=== PATIENT | male | born 1935 | race Caucasian/White ===

== ENCOUNTER 2023-02-02 11:32 | Emergency (ER) | payer MEDICARE, SELFPAY ==
[2023-02-02 11:34] VITALS: BP 122/79; PULSE 84; RESP 16; TEMP 36.5; O2SAT 99; BMI 27.4
--- NOTE | 2023-02-02 11:37 | ECG_ITS ---
[facility] Test Date: 2023-02-02 Pat Name: ANGELA PORTER Department: Room: - Gender: Male Media Director: : 1935 Requested By: TJ OWENS Order Number: [id number] Reading MD: KIMBERLY MEAD Measurements Intervals [place] Rate: 76 P: 21 IA: 146 QRS: 14 QRSD: 128 T: 60 QT: 394 QTc: 424 Interpretive Statements 1100 Sinus rhythm 2320 Nonspecific intraventricular conduction delay Inferolateral ST depression, can't exclude myocardial ischemia 9130 borderline ECG No previous ECG available for comparison Electronically Signed On 02-04-2023 11:37:57 EDT by KIMBERLY MEAD
--- NOTE | 2023-02-02 11:37 | XR_ITS ---
The [address] [address] Patient Name: ANGELA PORTER MRN: [id number] date: 1935 Sex: M Assigned Patient Location: ER Current Patient Location: ED.MAIN Accession/Order Number: [id number] Exam Date: 02/02/2023 11:47 Report Date: 02/02/2023 12:14 At the request of: YUE SMITH Procedure: XR chest 1V EXAM: XR chest 1V at 1153 hours HISTORY: confusion/delusions COMPARISON: None. TECHNIQUE: AP upright portable chest x-ray FINDINGS: The heart is not enlarged and the vasculature is not distended. Multiple sternal wire sutures are present. No acute infiltrate, effusion or pneumothorax is identified. The osseous structures are grossly intact. IMPRESSION: No acute infiltrate or evidence of cardiac decompensation. Direct comparison with a previous study would be helpful in determining the chronicity of these findings. Electronically authenticated by: MERI JAVIER Date: 02/02/2023 12:14
--- NOTE | 2023-02-02 11:57 | CT_ITS ---
The [address] [address] Patient Name: ANGELA PORTER MRN: [id number] date: 1935 Sex: M Assigned Patient Location: ER Current Patient Location: ER Accession/Order Number: [id number] Exam Date: 02/02/2023 12:25 Report Date: 02/02/2023 12:52 At the request of: YUE SMITH Procedure: CT head/brain wo con CT head/brain wo con, 02/02/2023 12:25 PM EDT INDICATION: Delusions/confused COMPARISON: None. TECHNIQUE: Axial CT images of the brain from skull base to vertex, including portions of the face and sinuses, were obtained without contrast. Multiplanar reformatted images were generated and reviewed as needed. FINDINGS: No intracranial mass, hydrocephalus, midline shift or acute hemorrhage. No extra-axial collection. Periventricular and deep white matter microvascular ischemic change. Mcwilliams-white matter differentiation is preserved. The paranasal sinuses and mastoid air cells are clear. Orbits are within normal limits. No acute skull fracture. IMPRESSION: 1. No acute intracranial abnormality. 2. Periventricular and deep white matter gliosis. Electronically authenticated by: TEGAN THAKUR Date: 02/02/2023 12:52
[2023-02-02 12:08] LABS: Basophils Percent Auto 0.7 % (0.2-2.0); Eosinophils Absolute Auto 0.1 10^3/uL (0.0-0.7); Eosinophils Percent Auto 2.6 % (0.9-7.0); Hemoglobin 13.2 g/dL (14.0-18.0); Immature Granulocytes Abs Auto 0.01 10^3/uL (0.00-0.03); Immature Granulocytes Pct Auto 0.2 % (0.0-0.5); Lymphocytes Absolute Auto 1.2 10^3/uL (1.2-3.8); Lymphocytes Percent Auto 25.3 % (20.5-60.0); Mean Corpuscular HGB Conc 33.8 g/dL (29.9-35.2); Mean Corpuscular Hemoglobin 29.6 pg (25.9-34.0); Mean Corpuscular Volume 87.4 fL (80.0-94.0); Monocytes Absolute Auto 0.5 10^3/uL (0.3-0.8); Monocytes Percent Auto 10.2 % (1.7-12.0); Neutrophils Absolute Auto 2.8 10^3/uL (1.4-6.5); Platelet Count 157 10^3/uL (150-450); Red Blood Count 4.46 10^6/uL (4.70-6.10); Red Cell Distribution Width 13.9 % (11.0-15.0); White Blood Count 4.6 10^3/uL (4.0-11.0)
[2023-02-02 12:29] LABS: Alanine Aminotransferase 20 U/L (16-63); Albumin Globulin Ratio 0.8; Albumin Level 3.6 g/dL (3.4-5.0); Alkaline Phosphatase 151 U/L (46-116); Anion Gap 17.5; Aspartate Amino Transferase 19 U/L (15-37); BUN Creatinine Ratio 16.9; Bilirubin Total 0.7 mg/dL (0.2-1.0); Calcium 9.2 mg/dL (8.5-10.1); Carbon Dioxide 20.3 mmol/L (21.0-32.0); Chloride 105 mmol/L (98-107); Estimated GFR (African America >60 (>=60); Estimated GFR (Non-African Ame 55 (>=60); Globulin 4.3 g/dL; Glucose 138 mg/dL (74-106); Potassium 3.8 mmol/L (3.5-5.1); Sodium 139 mmol/L (136-145); Total Protein 7.9 g/dL (6.4-8.2)
[2023-02-02 12:37] LABS: Ethanol <3 mg/dL; Thyroid Stimulating Hormone 2.054 uIU/mL (0.358-3.740)
[2023-02-02 12:51] LABS: Bilirubin Urine NEGATIVE (NEGATIVE); Blood Urine NEGATIVE (NEGATIVE); Clarity Urine CLEAR (CLEAR); Color Urine YELLOW (YELLOW); Glucose Urine UA NEGATIVE (NEGATIVE); Ketones Urine TRACE mg/dL (NEGATIVE); Leukocyte Esterase Urine NEGATIVE (NEGATIVE); Nitrite Urine NEGATIVE (NEGATIVE); Protein Urine NEGATIVE (NEG/TRACE); pH Urine 5.5 (5.0-9.0)
[2023-02-02 13:01] LABS: Amphetamine Screen Urine NEGATIVE (NEGATIVE); Barbiturates Screen Urine NEGATIVE (NEGATIVE); Benzodiazepines Screen Urine NEGATIVE (NEGATIVE); Buprenorphine Screen Urine NEGATIVE (NEGATIVE); Cannabinoid Screen Urine NEGATIVE (NEGATIVE); Cocaine Screen Urine NEGATIVE (NEGATIVE); Methadone Screen Urine NEGATIVE (NEGATIVE); Methamphetamines Screen Urine NEGATIVE (NEGATIVE); Opiate Screen Urine NEGATIVE (NEGATIVE); Oxycodone Screen Urine NEGATIVE (NEGATIVE); Phencyclidine Screen Urine NEGATIVE (NEGATIVE); Tricyclic Antidepressant Urine NEGATIVE (NEGATIVE)
--- NOTE | 2023-02-02 13:50 | ED_ITS ---
HPI - Medical Clearance General Chief complaint: Medical Clearance Stated complaint: CONFUSION Time Seen by Provider: 02/02/23 11:34 Source: patient Mode of arrival: ambulance History of Present Illness HPI Narrative: 87-year-old male presents for medical evaluation. He was staying at one facility and is to be transferred to another for psychiatric care. He doesn't seem to have any physical complaints. He was apparently was arguing with some person who was not there. He apparently created is a disturbance at the facility. This appears to been increasing over the past few days. He doesn't complain of a headache and hasn't had a fever. Related Information Home Medications Medication Instructions Recorded Confirmed atorvastatin 40 mg tablet 40 mg PO QPM 02/02/23 02/02/23 bisacodyl 10 mg rectal suppository [address] DAILY PRN constipation 02/02/23 02/02/23 calcium polycarbophil 625 mg 1,250 mg PO BID 02/02/23 02/02/23 tablet (FiberCon) cetirizine 5 mg tablet (Allergy 5 mg PO DAILY 02/02/23 02/02/23 Relief (cetirizine)) glucagon 1 mg solution for 1 mg IM Q20M PRN hypoglycemia 02/02/23 02/02/23 injection insulin lispro 100 unit/mL 1 sliding scale dose subcut 02/02/23 02/02/23 subcutaneous solution USEASDIRECTD magnesium oxide 400 mg PO DAILY 02/02/23 02/02/23 metformin 1,000 mg tablet 1,000 mg PO BID 02/02/23 02/02/23 pantoprazole 40 mg tablet,delayed 40 mg PO DAILY 02/02/23 02/02/23 release tamsulosin 0.4 mg capsule (Flomax) 0.4 mg PO DAILY 02/02/23 02/02/23 Allergies Allergy/AdvReac Type Severity Reaction Status Date / Time No Known Drug Allergies Allergy Verified 02/02/23 11:38 Review of Systems ROS Narrative unobtainable, age PFSH [facility] Medical History (Updated 02/02/23 @ 14:53 by Bobo Parham MD) Exam Narrative Exam Narrative: Nurses note and vital signs reviewed and patient is not hypoxic. General: The patient appears well and in no apparent distress. Patient is resting comfortably on cart. Skin: Warm, dry, no pallor noted. There is no rash noted. Head: Normocephalic, atraumatic Eye: Normal conjunctiva, no drainage Ears, Nose, Mouth, and Throat: oral mucosa is moist. Nares patent. Cardiovascular: not tachycardic Respiratory: Patient is in no distress, no accessory muscle use, lungs are clear to auscultation, no wheezing, rales or rhonchi Back: non-tender GI: soft and nontender Musculoskeletal: The patient has no evidence of calf tenderness, no pitting edema, symmetrical pulses noted bilaterally Neurological: awake and alert. When asked the year he said 2031 but he knew it is January and the last day of January. He knows his name and where he is. Psychiatric: Cooperative Constitutional Vital Signs - 24 hr 02/02/23 11:34 02/02/23 11:53 Temperature 97.7 F Pulse Rate [Monitor] 84 Respiratory Rate 16 Blood Pressure [Left Arm] 122/79 H Pulse Oximetry 99 Oxygen Delivery Method Room Air Room Air Course Vital Signs Vital signs: Vital Signs Temperature 97.7 F 02/02/23 11:34 Pulse Rate 84 02/02/23 11:34 Respiratory Rate 16 02/02/23 11:34 Blood Pressure 122/79 H 02/02/23 11:34 Pulse Oximetry 99 02/02/23 11:34 Oxygen Delivery Method Room Air 02/02/23 11:34 Temperature 97.7 F 02/02/23 11:34 Pulse Rate 84 02/02/23 11:34 Respiratory Rate 16 02/02/23 11:34 Blood Pressure 122/79 H 02/02/23 11:34 Pulse Oximetry 99 02/02/23 11:34 Oxygen Delivery Method Room Air 02/02/23 11:53 MDM - Medical Clearance MDM Narrative Medical decision making narrative: his medical workup is negative here and he is cleared. We have spoken to [facility], the facility that he ultimately will be transferred to, and they agreed that the patient can go back to his current ECF. Differential Diagnosis Differential diagnosis: Likely other (urinary tract infection, pneumonia, stroke, dementia) Lab Data Attestation: I reviewed the patient's lab results. Labs: Lab Results 02/02/23 02/02/23 Range/Units 11:45 12:33 WBC 4.6 (4.0-11.0) 10^3/uL RBC 4.46 L (4.70-6.10) 10^6/uL Hgb 13.2 L (14.0-18.0) g/dL Hct 39.0 L (42.0-54.0) % MCV 87.4 (80.0-94.0) fL MCH 29.6 (25.9-34.0) pg MCHC 33.8 (29.9-35.2) g/dL RDW 13.9 (11.0-15.0) % Plt Count 157 (150-450) 10^3/uL MPV 12.0 (9.5-13.5) fL Neut % (Auto) 61.0 (43.0-75.0) % Lymph % (Auto) 25.3 (20.5-60.0) % [place] % (Auto) 10.2 (1.7-12.0) % Eos % (Auto) 2.6 (0.9-7.0) % Baso % (Auto) 0.7 (0.2-2.0) % Neut # (Auto) 2.8 (1.4-6.5) 10^3/uL Lymph # (Auto) 1.2 (1.2-3.8) 10^3/uL [place] # (Auto) 0.5 (0.3-0.8) 10^3/uL Eos # (Auto) 0.1 (0.0-0.7) 10^3/uL Baso # (Auto) 0.0 (0.0-0.1) 10^3/uL Abs Immat Gran (auto) 0.01 (0.00-0.03) 10^3/uL Imm/Tot Granulo (auto) 0.2 (0.0-0.5) % Sodium 139 (136-145) mmol/L Potassium 3.8 (3.5-5.1) mmol/L Chloride 105 (98-107) mmol/L Carbon Dioxide 20.3 L (21.0-32.0) mmol/L Anion Gap 17.5 BUN 21.0 H (7.0-18.0) mg/dL Creatinine 1.24 (0.70-1.30) mg/dL Est GFR ( Amer) >60 (>=60) Est GFR (Non-Af Amer) 55 L (>=60) BUN/Creatinine Ratio 16.9 Glucose 138 H (74-106) mg/dL Calcium 9.2 (8.5-10.1) mg/dL Total Bilirubin 0.7 (0.2-1.0) mg/dL AST 19 (15-37) U/L ALT 20 (16-63) U/L Alkaline Phosphatase 151 H (46-116) U/L Total Protein 7.9 (6.4-8.2) g/dL Albumin 3.6 (3.4-5.0) g/dL Globulin 4.3 g/dL Albumin/Globulin Ratio 0.8 TSH 2.054 (0.358-3.740) uIU/mL Urine Color Yellow (YELLOW) Urine Clarity Clear (CLEAR) Urine pH 5.5 (5.0-9.0) Ur Specific [place] 1.020 (1.005-1.025) Urine Protein Negative (NEG/TRACE) mg/dL Urine Glucose (UA) Negative (NEGATIVE) mg/dL Urine Ketones Trace A (NEGATIVE) mg/dL Urine Occult Blood Negative (NEGATIVE) Urine Nitrite Negative (NEGATIVE) Urine Bilirubin Negative (NEGATIVE) Urine Urobilinogen 1.0 (0.2-1.0) EU/dL Ur Leukocyte Esterase Negative (NEGATIVE) Urine Opiates Screen Negative (NEGATIVE) Ur Buprenorphine Scrn Negative (NEGATIVE) Ur Oxycodone Screen Negative (NEGATIVE) Urine Methadone Screen Negative (NEGATIVE) Ur Propoxyphene Screen Negative (NEGATIVE) Ur Barbiturates Screen Negative (NEGATIVE) U Tricyclic Antidepress Negative (NEGATIVE) Ur Phencyclidine Scrn Negative (NEGATIVE) Ur Amphetamines Screen Negative (NEGATIVE) U Methamphetamines Scrn Negative (NEGATIVE) U Benzodiazepines Scrn Negative (NEGATIVE) Urine Cocaine Screen Negative (NEGATIVE) U Cannabinoids Screen Negative (NEGATIVE) Ethanol Quant <3 mg/dL Discharge Plan Discharge Chief Complaint: Medical Clearance Clinical Impression: Adult behavior problem Patient Disposition: Xfer SNF Time of Disposition Decision: 14:53 Mode of Transportation: EMS Instructions: Cognitive Behavioral Therapy (ED) Stand Alone Forms: Portal Instructions Referrals: TJ OWENS [Primary Care Provider] - 1 week
--- NOTE | 2023-02-02 14:40 | PC.NURSE ---
Called and spoke with nurse Perdomo at [facility] re: med clearance for psych eval and placement. Leanne request labs and EKG to be faxed to [facility] at which has been completed. Leanne also informs this nurse that as long as pt is not a threat to self or others then the pt can be sent back to the facility to wait for placement while [facility] is working on this placement. ER DR informed and pt will be sent back to facility for placement and pt is not a threat to self or others.
--- NOTE | 2023-02-02 15:13 | PC.NURSE ---
Nurse Sara called at [facility] to report that pt will be returning to facility while waiting placement. Sara verbalized understanding.
--- NOTE | 2023-02-02 15:24 | PC.NURSE ---
EMS here to transfer pt to Facility, pt did not show any aggressive behavior and no delusions while in ER, paper work sent with pt
== END 2023-02-02 15:26 | disposition home or self-care (01) ==
PROVIDERS: Emergency Provider Emergency Medicine; PCP Internal Medicine
DX: F91.9 Conduct disorder, unspecified (principal); Z79.899 Other long term (current) drug therapy; Z79.4 Long term (current) use of insulin; Z79.84 Long term (current) use of oral hypoglycemic drugs
CPT/HCPCS: 36415; 70450; 71045; 80053; 80307; 80320; 81003; 84443; 85025; 93005; 99285

== ENCOUNTER 2023-02-07 16:22 | Emergency (ER) | payer MEDICARE, SELFPAY ==
[2023-02-07 16:29] VITALS: BP 129/78; PULSE 78; RESP 18; TEMP 36.6; O2SAT 100; BMI 25.0
[2023-02-07 16:32] VITALS: BP 124/75; PULSE 70; PULSE 71; RESP 16; RESP 25; O2SAT 100; O2SAT 97
--- NOTE | 2023-02-07 16:33 | ED.GENADUL1 ---
HPI - General Adult General Chief complaint: Nausea/Vomiting/Diarrhea Stated complaint: NAUSEA/VOMITING Time Seen by Provider: 02/07/23 16:33 History of Present Illness HPI narrative: this patient brought to us by paramedics from a local residential. He was just here several days ago for similar problems. I will review those charts. Today the report was that he's had ongoing nausea vomiting and diarrhea. He does have some dementia and doesn't have a lot of insight into these problems but he does admit to being nauseated, however he feels better since the paramedics gave him medication. He does not have a headache. Does not have a stomachache at this time. We will review his old records but there is no history of falls, difficulty breathing or change in his cognition. Related Data Home Medications Medication Instructions Recorded Confirmed atorvastatin 40 mg tablet 40 mg PO QPM 02/02/23 02/02/23 bisacodyl 10 mg rectal suppository 10 mg MD DAILY PRN constipation 02/02/23 02/02/23 calcium polycarbophil 625 mg 1,250 mg PO BID 02/02/23 02/02/23 tablet (FiberCon) cetirizine 5 mg tablet (Allergy 5 mg PO DAILY 02/02/23 02/02/23 Relief (cetirizine)) glucagon 1 mg solution for 1 mg IM Q20M PRN hypoglycemia 02/02/23 02/02/23 injection insulin lispro 100 unit/mL 1 sliding scale dose subcut 02/02/23 02/02/23 subcutaneous solution USEASDIRECTD magnesium oxide 400 mg PO DAILY 02/02/23 02/02/23 metformin 1,000 mg tablet 1,000 mg PO BID 02/02/23 02/02/23 pantoprazole 40 mg tablet,delayed 40 mg PO DAILY 02/02/23 02/02/23 release tamsulosin 0.4 mg capsule (Flomax) 0.4 mg PO DAILY 02/02/23 02/02/23 Allergies Allergy/AdvReac Type Severity Reaction Status Date / Time No Known Drug Allergies Allergy Verified 02/02/23 11:38 [facility] Medical History (Updated 02/07/23 @ 18:21 by Kenji Cameron MD) Exam Narrative Exam Narrative: awake alert not somnolent or lethargic. Follows all simple and complex commands but clearly has some dementia. Garments are not soiled and he's not had any vomitus in route here but he does say he feels better after getting Zofran. I did review his last Emergency Room record and at that time the record and the nursing was here with him indicate that he did not have vomiting and diarrhea at that visit. Vital signs are normal as noted. I examination shows extraocular muscles be normal no pallor conjunctivitis or periorbital swelling. Neck examination is soft and supple he sits him up moves about comfortably. There is no nuchal rigidity or meningeal irritation History his lungs are clear pulse ox a hundred percent there is no respiratory distress. Cardio right rate and rhythm are normal with no S3-S4 or murmur. Abdomen is soft and supple he does not have any pain grimacing or discomfort to palpation. There is no loose stool in his undergarments at this time. Extremities show no pitting edema phlebitis swelling or evidence of injury. Constitutional Vital Signs - 24 hr 02/07/23 16:29 02/07/23 16:35 Temperature 97.9 F Pulse Rate [Monitor] 78 Respiratory Rate 18 Blood Pressure [Right Arm] 129/78 H Pulse Oximetry 100 Oxygen Delivery Method Room Air Room Air Course Vital Signs Vital signs: Vital Signs Temperature 97.9 F 02/07/23 16:29 Pulse Rate 78 02/07/23 16:29 Respiratory Rate 18 02/07/23 16:29 Blood Pressure 129/78 H 02/07/23 16:29 Pulse Oximetry 100 02/07/23 16:29 Oxygen Delivery Method Room Air 02/07/23 16:29 Temperature 97.9 F 02/07/23 16:29 Pulse Rate 78 02/07/23 16:29 Respiratory Rate 18 02/07/23 16:29 Blood Pressure 129/78 H 02/07/23 16:29 Pulse Oximetry 100 02/07/23 16:29 Oxygen Delivery Method Room Air 02/07/23 16:35 Medical Decision Making MDM Narrative Medical decision making narrative: patient had no vomiting or diarrhea while here. His chemistries were essentially unchanged from previous studies. His lactate is mildly elevated but there is no anion gap. His dementia is stable and unchanged from previous visit. We have ordered a stool PCR in lieu of his history but we see no objective evidence of ongoing fluid loss. His creatinine and B1 are stable. Lab Data Labs: Lab Results 02/07/23 Range/Units 16:45 WBC 4.0 (4.0-11.0) 10^3/uL RBC 4.05 L (4.70-6.10) 10^6/uL Hgb 11.9 L (14.0-18.0) g/dL Hct 34.3 L (42.0-54.0) % MCV 84.7 (80.0-94.0) fL MCH 29.4 (25.9-34.0) pg MCHC 34.7 (29.9-35.2) g/dL RDW 13.7 (11.0-15.0) % Plt Count 144 L (150-450) 10^3/uL MPV 12.4 (9.5-13.5) fL Neut % (Auto) 63.6 (43.0-75.0) % Lymph % (Auto) 23.5 (20.5-60.0) % [place] % (Auto) 9.2 (1.7-12.0) % Eos % (Auto) 2.7 (0.9-7.0) % Baso % (Auto) 0.5 (0.2-2.0) % Neut # (Auto) 2.6 (1.4-6.5) 10^3/uL Lymph # (Auto) 1.0 L (1.2-3.8) 10^3/uL [place] # (Auto) 0.4 (0.3-0.8) 10^3/uL Eos # (Auto) 0.1 (0.0-0.7) 10^3/uL Baso # (Auto) 0.0 (0.0-0.1) 10^3/uL Abs Immat Gran (auto) 0.02 (0.00-0.03) 10^3/uL Imm/Tot Granulo (auto) 0.5 (0.0-0.5) % Sodium 134 L (136-145) mmol/L Potassium 4.4 (3.5-5.1) mmol/L Chloride 105 (98-107) mmol/L Carbon Dioxide 22.9 (21.0-32.0) mmol/L Anion Gap 10.5 BUN 23.0 H (7.0-18.0) mg/dL Creatinine 1.04 (0.70-1.30) mg/dL Est GFR ( Amer) >60 (>=60) Est GFR (Non-Af Amer) >60 (>=60) BUN/Creatinine Ratio 22.1 Glucose 130 H (74-106) mg/dL Lactate 2.8 H* (0.4-2.0) mmol/L Calcium 8.9 (8.5-10.1) mg/dL Total Bilirubin 0.6 (0.2-1.0) mg/dL AST 20 (15-37) U/L ALT 24 (16-63) U/L Alkaline Phosphatase 174 H (46-116) U/L Total Protein 7.1 (6.4-8.2) g/dL Albumin 3.6 (3.4-5.0) g/dL Globulin 3.5 g/dL Albumin/Globulin Ratio 1.0 Lipase 35.0 L (73.0-393.0) U/L Discharge Plan Discharge Chief Complaint: Nausea/Vomiting/Diarrhea Clinical Impression: Dehydration Patient Disposition: Home, Self-Care Time of Disposition Decision: 18:20 Prescriptions / Home Meds: No Action atorvastatin 40 mg tablet 40 mg PO QPM cetirizine [Allergy Relief (cetirizine)] 5 mg tablet 5 mg PO DAILY bisacodyl 10 mg suppository 10 mg MD DAILY PRN (Reason: constipation) calcium polycarbophil [FiberCon] 625 mg tablet 1,250 mg PO BID tamsulosin [Flomax] 0.4 mg capsule 0.4 mg PO DAILY glucagon 1 mg recon soln 1 mg IM Q20M PRN (Reason: hypoglycemia) Rx Instructions: until target blood sugar attained insulin lispro 100 unit/mL solution 1 sliding scale dose subcut USEASDIRECTD magnesium oxide 400 mg magnesium capsule 400 mg PO DAILY metformin 1,000 mg tablet 1,000 mg PO BID pantoprazole 40 mg tablet,delayed release (DR/EC) 40 mg PO DAILY Instructions: Dehydration (ED) Additional Instructions: may use Zofran as needed for nausea. Patient has not had any diarrhea if he does it should be tested for PCR analysis. Stand Alone Forms: Portal Instructions Referrals: TJ OWENS [Primary Care Provider] - 1 week
[2023-02-07 16:56] LABS: Basophils Percent Auto 0.5 % (0.2-2.0); Eosinophils Absolute Auto 0.1 10^3/uL (0.0-0.7); Eosinophils Percent Auto 2.7 % (0.9-7.0); Hematocrit 34.3 % (42.0-54.0); Hemoglobin 11.9 g/dL (14.0-18.0); Immature Granulocytes Abs Auto 0.02 10^3/uL (0.00-0.03); Immature Granulocytes Pct Auto 0.5 % (0.0-0.5); Lymphocytes Percent Auto 23.5 % (20.5-60.0); Mean Corpuscular HGB Conc 34.7 g/dL (29.9-35.2); Mean Corpuscular Hemoglobin 29.4 pg (25.9-34.0); Mean Corpuscular Volume 84.7 fL (80.0-94.0); Mean Platelet Volume 12.4 fL (9.5-13.5); Monocytes Absolute Auto 0.4 10^3/uL (0.3-0.8); Monocytes Percent Auto 9.2 % (1.7-12.0); Neutrophils Absolute Auto 2.6 10^3/uL (1.4-6.5); Neutrophils Percent Auto 63.6 % (43.0-75.0); Platelet Count 144 10^3/uL (150-450); Red Blood Count 4.05 10^6/uL (4.70-6.10); Red Cell Distribution Width 13.7 % (11.0-15.0)
[2023-02-07 17:00] VITALS: BP 126/69; PULSE 73; RESP 13; O2SAT 98
[2023-02-07] MEDS: ONDANSETRON PF 4 MG/2 ML VIAL IV (17:20)
[2023-02-07] MEDS: 0.9 % SODIUM CHLORIDE 1,000 ML 999 ML IV (17:20)
[2023-02-07 17:30] VITALS: BP 124/69; PULSE 76; RESP 11; O2SAT 97
[2023-02-07 18:00] VITALS: BP 121/68; PULSE 76; RESP 16; O2SAT 99
[2023-02-07 18:10] LABS: Alanine Aminotransferase 24 U/L (16-63); Albumin Level 3.6 g/dL (3.4-5.0); Alkaline Phosphatase 174 U/L (46-116); Anion Gap 10.5; Aspartate Amino Transferase 20 U/L (15-37); BUN Creatinine Ratio 22.1; Bilirubin Total 0.6 mg/dL (0.2-1.0); Calcium 8.9 mg/dL (8.5-10.1); Carbon Dioxide 22.9 mmol/L (21.0-32.0); Chloride 105 mmol/L (98-107); Estimated GFR (African America >60 (>=60); Estimated GFR (Non-African Ame >60 (>=60); Globulin 3.5 g/dL; Glucose 130 mg/dL (74-106); Potassium 4.4 mmol/L (3.5-5.1); Sodium 134 mmol/L (136-145); Total Protein 7.1 g/dL (6.4-8.2)
[2023-02-07 18:13] LABS: Lactate/Lactic Acid 2.8 mmol/L (0.4-2.0)
[2023-02-07 18:30] VITALS: BP 126/69; PULSE 76; RESP 16; O2SAT 100
[2023-02-07 19:14] LABS: Bilirubin Urine NEGATIVE (NEGATIVE); Blood Urine NEGATIVE (NEGATIVE); Clarity Urine CLEAR (CLEAR); Color Urine YELLOW (YELLOW); Glucose Urine UA NEGATIVE (NEGATIVE); Ketones Urine NEGATIVE (NEGATIVE); Leukocyte Esterase Urine NEGATIVE (NEGATIVE); Nitrite Urine NEGATIVE (NEGATIVE); Protein Urine NEGATIVE (NEG/TRACE); pH Urine 5.5 (5.0-9.0)
--- NOTE | 2023-02-07 19:20 | PC.NURSE ---
Report received from Meg MORALES Pt repositioned in bed, aware of plan to return to retirement Pt denies further needs at this time Pt currently on monitor with fluids running
[2023-02-07 19:25] LABS: Urine Microscopic Indicated NO
== END 2023-02-07 20:25 | disposition home or self-care (01) ==
PROVIDERS: Emergency Provider Emergency Medicine Emergency Medical Services; PCP Internal Medicine
DX: E86.0 Dehydration (principal); F03.90 Unspecified dementia, unspecified severity, without behavioral disturbance, psychotic disturbance, mood disturbance, and anxiety; Z79.899 Other long term (current) drug therapy; Z79.4 Long term (current) use of insulin; Z79.84 Long term (current) use of oral hypoglycemic drugs
CPT/HCPCS: 36415; 80053; 81003; 83605; 83690; 85025; 87507; 96374; 99285